=== PATIENT | male | born 2000 | race African-American/Black ===

== ENCOUNTER 2020-09-25 12:22 | Emergency (ER) | payer MEDICAID ==
[~2020-09-25] VITALS: Ht 172.7 cm; Wt 63.4 kg
[2020-09-25 12:26] VITALS: BP 122/92
--- NOTE | 2020-09-25 12:54 | NUR ---
PT AT ED WANTING AN STI TEST DUE TO EJACULATING "RED STUFF". PT SAYS THE PARTNER HE WAS PREVIOUSLY WITH ADMITTED TO RECENT [facility] AND HE IS CONCERNED. PT DENIES ANY OTHER SYMPTOMS AT THIS TIME.
[2020-09-25 13:09] LABS: MICROSCOPIC NOT IND
[2020-09-25] MEDS ORDERED: CEFTRIAXONE 1,000 MG ONE (13:19)
[2020-09-25] MEDS ORDERED: AZITHROMYCIN 250 MG TABLET ONE (13:19)
--- NOTE | 2020-09-25 13:28 | NUR ---
TASK RN: PT MEDICATED PER EMAR
[2020-09-25] MEDS ORDERED: AZITHROMYCIN 500 MG TABLET PO ONE (13:30)
[2020-09-25] MEDS ORDERED: CEFTRIAXONE 250 MG IM ONE (13:30)
--- NOTE | 2020-09-25 14:03 | NUR ---
PT REC'VD DISCHARGE INSTRUCTIONS AND EDUCATION. PT HAD NO FURTHER QUESTIONS. PT AMBULATED TO DC AREA, STEADY GAIT.
== END 2020-09-25 14:06 | disposition home or self-care (01) ==
LOC: ED 13:31
DX: A56.8 Sexually transmitted chlamydial infection of other sites (principal); R36.9 Urethral discharge, unspecified
CPT/HCPCS: 81003; 87491; 87591; 96372; 99283; J0696